=== PATIENT | female | born 1970 | race Caucasian/White ===

== ENCOUNTER → 2019-01-01 | Outpatient (CLI) | payer OTHER ==
[2019-01-01 11:52] LABS: Vitamin D 25 Hydroxy 22.7 ng/mL (30.0-100.0)
[2019-01-01 11:54] LABS: Albumin 4.4 g/dL (3.80-4.90); Albumin/Globulin Ratio 2.1 (1.60-3.17); Calcium 8.7 mg/dL (8.7-10.3); Globulin 2.1 g/dL (1.6-3.3); LDL Cholesterol,Calculated 72.2 mg/dL (0.0-131.0); Potassium 3.5 mmol/L (3.5-5.5); Total Bilirubin 0.2 mg/dL (0.2-1.2); Total Protein 6.5 g/dL (6.2-8.2); VLDL Calculation 17.8 mg/dL (5.00-40.00)
[2019-01-01 14:12] LABS: Hemoglobin A1C 4.9 % (4.0-6.0)
== END | disposition home or self-care (01) ==
LOC: LABWHC1 07:37
PROVIDERS: ATTEND Obstetrics & Gynecology
DX: N94.6 Dysmenorrhea, unspecified (principal); N94.3 Premenstrual tension syndrome
CPT/HCPCS: 36415; 80053; 80061; 82306; 82550; 83036; 83090; 84439; 84443

== ENCOUNTER → 2020-04-03 | Outpatient (CLI) | payer OTHER ==
--- NOTE | 2020-04-04 04:54 | MR ---
EXAMINATION TYPE: MR shoulder RT wo con DATE OF EXAM: 04/03/2020 COMPARISON: HISTORY: Right shoulder pain, nondisplaced fx of greater tuberosity Multiplanar multiecho imaging of the right shoulder was performed without contrast. FINDINGS: On the T2 images there is large area of abnormal increased signal in the proximal humerus involving g reater tuberosity and extending to the humeral neck. The glenoid andre appear intact. Subscapularis tendon is intact. Biceps tendon is intact. The AC join t is intact. There is no subacromial impingement. There is mild increased signal within the supraspin atus tendon without a full-thickness tear. There is no retraction. The scapula appears intact. There is no evidence of a soft tissue mass. There is no significant shoulder joint effusion. There is small amount of fluid in the subdeltoid bursa. IMPRESSION: Extensive abnormal signal in the greater tuberosity of the humerus consistent with trauma tic injury. This could be a nondisplaced fracture. There is significant bone bruise. Minimal signal changes in the supraspinatus tendon consistent with mild tendinitis. No full-thickness tear. Mild subdeltoid effusion.
== END | disposition home or self-care (01) ==
LOC: RADMRIMAIN 06:27
PROVIDERS: ATTEND Orthopaedic Surgery Sports Medicine
DX: S40.021A Contusion of right upper arm, initial encounter (principal); M25.411 Effusion, right shoulder

== ENCOUNTER 2024-10-05 15:39 | Emergency (ER) | payer OTHER ==
[2024-10-05 16:04] LABS: Basophils % (A) 0 %; Eosinophils # (A) 0.1 k/uL (0-0.7); Eosinophils % (A) 1 %; HCT 38.3 % (34.0-46.0); HGB 13.2 gm/dL (11.4-16.0); Lymphocytes # (A) 1.4 k/uL (1.0-4.8); Lymphocytes % (A) 20 %; MCH 30.8 pg (25.0-35.0); MCHC 34.4 g/dL (31.0-37.0); MCV 89.4 fL (80.0-100.0); Mean Platelet Volume 7.8; Monocytes # (A) 0.3 k/uL (0-1.0); Monocytes % (A) 4 %; Neutrophils # (A) 5.2 k/uL (1.3-7.7); Neutrophils % (A) 74 %; Platelet Count 160 k/uL (150-450); RBC 4.28 m/uL (3.80-5.40); RDW 12.3 % (11.5-15.5)
[2024-10-05 16:13] LABS: ALT 18 U/L (4-34); AST 21 U/L (14-36); African American GFR (CKD) >90 (>60 ml/min/1.73 sqM); Albumin 4.5 g/dL (3.5-5.0); Alkaline Phosphatase 48 U/L (38-126); Anion Gap 9 mmol/L; Blood Urea Nitrogen 16 mg/dL (7-17); Carbon Dioxide 29 mmol/L (22-30); Chloride 100 mmol/L (98-107); Glucose 151 mg/dL (74-99); Non-African American GFR(CKD) >90 (>60 ml/min/1.73 sqM); Potassium 3.4 mmol/L (3.5-5.1); Sodium 138 mmol/L (137-145); Total Bilirubin 0.6 mg/dL (0.2-1.3); Total Protein 6.9 g/dL (6.3-8.2)
[2024-10-05 16:19] VITALS: RESP 18
[2024-10-05 16:20] LABS: INR 0.9 (<1.2); Partial Thromboplastin Time 22.3 sec (22.0-30.0); Prothrombin Time 10.3 sec (10.0-12.5)
--- NOTE | 2024-10-05 16:21 | XR ---
EXAMINATION TYPE: XR chest 2V DATE OF EXAM: 10/05/2024 4:11 PM COMPARISON: None CLINICAL INDICATION: Female, 54 years old with history of Chest Pain; TECHNIQUE: XR chest 2V Frontal and lateral views of the chest. FINDINGS: Lungs/Pleura: There is no evidence of pleural effusion, focal consolidation, or pneumothorax. Pulmonary vascularity: Unremarkable. Heart/mediastinum: Cardiomediastinal silhouette is unremarkable. Musculoskeletal: No acute osseous pathology. IMPRESSION: No acute cardiopulmonary disease/process. [facility], , 10/05/2024 4:19 PM
[2024-10-05] MEDS: KETOROLAC 15 MG/ML 1 ML VIAL IVP STA (17:36)
--- NOTE | 2024-10-05 18:23 | ED ---
Chest Pain HPI - General Chief Complaint: Chest Pain Stated Complaint: Chest pains Time Seen by Provider: 10/05/24 15:50 Source: patient Mode of arrival: ambulatory Limitations: no limitations - History of Present Illness Initial Comments: 54-year-old female who presents emergency department reporting left-sided chest pain which radiates to the right scapula. Pain started 4 days ago. It is reproducible with movement and tender to touch the patient's chest wall. She denies any injuries. No changes in her current routine. She has no history of heart disease. Denies having risk factors at this hide blood pressure, high cholesterol, diabetes. No family history of heart disease. Denies shortness of breath. No cough, fevers or chills. She has not taken anything for the pain. She went to an urgent care and they recommended that she come to the hospital for evaluation. Twelve-lead EKG was performed. No other alleviating, preci pitating modifying factors - Related Data Home Medications Medication Instructions Recorded Confirmed Alendronate Sodium [Binosto] 70 mg PO WE 10/05/24 10/05/24 Tamoxifen Citrate [Nolvadex] 20 mg PO DAILY 10/05/24 10/05/24 Previous Rx's Medication Instructions Recorded Cyclobenzaprine [Flexeril] 10 mg PO TID PRN #15 tab 10/05/24 Ketorolac [Toradol] 10 mg PO Q8HR #15 tab 10/05/24 Lidocaine 5% Patch [Lidoderm] 1 patch TOPICAL DAILY #30 patch 10/05/24 Allergies Allergy/AdvReac Type Severity Reaction Status Date / Time Penicillins Allergy Rash/Hives Verified 10/05/24 17:07 Review of Systems ROS Statement: Those systems with pertinent positive or pertinent negative responses have been documented in the HPI. ROS Other: All systems not noted in ROS Statement are negative. Past Medical History Past Medical History: Cancer, Osteoarthritis (OA) Past Surgical History: Section Additional Past Surgical History / Comment(s): brest biopsy Smoking Status: Never smoker General Exam Limitations: no limitations General appearance: alert, in no apparent distress Head exam: Present: atraumatic, normocephalic, normal inspection Eye exam: Present: normal appearance, PERRL, EOMI. Absent: scleral icterus, conjunctival injection, periorbital swelling ENT exam: Present: normal exam, mucous membranes moist Neck exam: Present: normal inspection. Absent: tenderness, meningismus, lymphadenopathy Respiratory exam: Present: normal lung sounds bilaterally. Absent: respiratory distress, wheezes, rales, rhonchi, stridor Cardiovascular Exam: Present: regular rate, normal rhythm, normal heart sounds. Absent: systolic murmur, diastolic murmur, rubs, gallop, clicks GI/Abdominal exam: Present: soft, normal bowel sounds. Absent: distended, tenderness, guarding, rebound, rigid Extremities exam: Present: normal inspection, full ROM, normal capillary refill. Absent: tenderness, pedal edema, joint swelling, calf tenderness Back exam: Present: normal inspection Neurological exam: Present: alert, oriented X3, CN II-XII intact Psychiatric exam: Present: normal affect, normal mood Skin exam: Present: warm, dry, intact, normal color. Absent: rash Course Vital Signs 10/05/24 10/05/24 10/05/24 15:40 16:18 17:34 Temperature 98.1 F Pulse Rate 115 H 83 94 Respiratory 20 18 18 Rate Blood Pressure 134/81 131/77 116/77 O2 Sat by Pulse 98 95 100 Oximetry 10/05/24 18:51 Temperature 98.5 F Pulse Rate 82 Respiratory 18 Rate Blood Pressure 99/66 O2 Sat by Pulse 100 Oximetry Chest Pain MDM - MDM Was pt. sent in by a medical professional or institution (DIANA Hu, DOCTOR OF DENTAL MEDICINE, urgent care, hospital, or long term...) When possible be specific @ -Patient sent in from urgent care Did you speak to anyone other than the patient for history (EMS, parent, family, police, friend...)? What history was obtained from this source @ -No Did you review nursing and triage notes (agree or disagree)? Why? @ -I reviewed and agree with nursing and triage notes Were old charts reviewed (outside hosp., previous admission, EMS record, old EKG, old radiological studies, urgent care reports/EKG's, long term records)? Report findings @ -I reviewed the EKG that was completed at the urgent care Differential Diagnosis (chest pain, altered mental status, abdominal pain women, abdominal pain men, vaginal bleeding, weakness, fever, dyspnea, syncope, headache, dizziness, GI bleed, back pain, seizure, CVA, palpatations, mental health, musculoskeletal)? @ -Differential Chest Pain: Stable Angina, Unstable Angina, STEMI, NSTEMI Aortic Dissection, Pneumothorax, Musculoskeletal, Esophageal Spasm GERD, Cholecystitis, Pancreatitis, Zoster, this is not meant to be an all-inclusive list. EKG interpreted by me (3pts min.). @ -Yes and demonstrates sinus rhythm with a rate of 97. MI interval 134. QRS 83. QTc of 394. No acute ST segment elevations or depressions X-rays interpreted by me (1pt min.). @ -Yes which demonstrates no acute process CT interpreted by me (1pt min.). @ -None done U/S interpreted by me (1pt. min.). @ -None done What testing was considered but not performed or refused? (CT, X-rays, U/S, labs)? Why? @ -None What meds were considered but not given or refused? Why? @ -None Did you discuss the management of the patient with other professionals (professionals i.e. , PA, DOCTOR OF DENTAL MEDICINE, lab, RT, psych nurse, professor of social work, national coverage specialist, teacher, coastal/harbor defense officer, case finishing machine adjuster)? Give summary @ -No Was smoking cessation discussed for >3mins.? @ -No Was critical care preformed (if so, how long)? @ -No Were there social determinants of health that impacted care today? How? (Homelessness, low income, unemployed, alcoholism, drug addiction, transportation, low edu. Level, literacy, decrease access to med. care, nursing home, rehab)? @ -No Was there de-escalation of care discussed even if they declined (Discuss DNR or withdrawal of care, Hospice)? DNR status @ -No What co-morbidities impacted this encounter? (DM, HTN, Smoking, COPD, CAD, Cancer, CVA, ARF, Chemo, Hep., AIDS, mental health diagnosis, sleep apnea, morbid obesity)? @ -None Was patient admitted / discharged? Hospital course, mention meds given and route, prescriptions, significant lab abnormalities, going to OR and other pertinent info. @ -Upon arrival patient seen and evaluated in room 24. Thorough history and physical exam was performed. Pain is present however reproducible upon palpation of the chest wall. Patient does have some induration over the posterior right scapula. Patient is placed on continuous pulse ox and cardiac monitoring. Twelve-lead EKG is obtained. Laboratory studies are conducted. Chest x-ray was performed. Troponin is negative. Patient has a low heart score. I did discuss the diagnosis, differential and treatment options. Patient is comfortable going home as she does have a low heart score. She will be placed on Lidoderm patches and muscle relaxers. She should follow-up with her primary care doctor for further testing to include echo and stress test. Return for any new or worsening symptoms. Patient agreeable plan was discharged in stable condition Undiagnosed new problem with uncertain prognosis? @ -No Drug Therapy requiring intensive monitoring for toxicity (Heparin, Nitro, Insulin, Cardizem)? @ -No Were any procedures done? @ -No Diagnosis/symptom? @ -Acute chest wall pain Acute, or Chronic, or Acute on Chronic? @ -Acute Uncomplicated (without systemic symptoms) or Complicated (systemic symptoms)? @ -Complicated Side effects of treatment? @ -No Exacerbation, Progression, or Severe Exacerbation? @ -No Poses a threat to life or bodily function? How? (Chest pain, [place], [place], pneumonia, PE, COPD, DKA, ARF, appy, cholecystitis, CVA, Diverticulitis, Homicidal, Suicidal, threat to staff... and all critical care pts) @ -No Disposition Clinical Impression: Atypical chest pain Disposition: HOME SELF-CARE Condition: Stable Instructions (If sedation given, give patient instructions): Chest Wall Pain (ED) Additional Instructions: Today's testing was within normal limits. I do recommend that you look further in you to your symptoms. See your primary care doctor and have them perform an echo and a stress test. Try the medications that I have prescribed to see if they alleviate your symptoms and return for any new or worsening symptoms Prescriptions: Cyclobenzaprine [Flexeril] 10 mg PO TID PRN #15 tab PRN Reason: Muscle Spasm Lidocaine 5% Patch [Lidoderm] 1 patch TOPICAL DAILY #30 patch Ketorolac [Toradol] 10 mg PO Q8HR #15 tab Is patient prescribed a controlled substance at d/c from ED?: No Referrals: Josh Salazar DO [Primary Care Provider] - 1-2 days Time of Disposition: 18:26
[2024-10-05 18:52] VITALS: BP 99/66; PULSE 82; TEMP 98.5
== END 2024-10-05 18:59 | disposition home or self-care (01) ==
LOC: EC 15:39
DX: R07.89 Other chest pain (principal); Z88.0 Allergy status to penicillin
CPT/HCPCS: 36415; 93005; 85379; 80053; 83735; 84484; 85025; 85610; 85730; 71046; 99285; 96374; J1885